=== PATIENT | female | born 1965 | race Caucasian/White ===

== ENCOUNTER 2020-12-18 11:16 | Emergency (ER) | payer OTHER ==
[~2020-12-18 11:16] MED LIST: CLIMARA TOP; CYMBALTA 30MG C30 MG PO; FLONASE ALLER15.8 ML; JENTADUETO 2.51 EAC1 PO; KLONOPIN0.5 MG PO; MULTI-VITAMIN1 EAC1 PO; NORCO 5-325 TA1 EACH PO; PRILOSEC20 MG PO; SYMBICORT 80-10.2 GM INH; TRADJENTA5 MG PO; VENLAFAXINE HCL75 MG PO; VENTOLIN HFA IN18 GM INH; VICTOZA 2-0.6 MG/0.1 SQ; VITAMIN D2000 UNIT PO; ZESTORETIC 20-1 EACH PO; [UNRECOGNIZED DRUG - OTHER] TOP
[2020-12-18 11:50] LABS: BASOPHIL 0.3 % (0-2); EOSINOPHIL 1.5 % (0-5); HCT 42.1 % (37.0-47.0); HGB 14.1 g/dl (12.5-16.0); LYMPHOCYTE 39.4 % (15-48); MCH 31.1 pg (25.0-31.0); MCHC 33.5 g/dL (32.0-36.0); MCV 92.7 fL (78.0-100.0); MONOCYTE 9.2 % (0-12); MPV 9.4 fL (6.0-9.5); NEUTROPHIL 49.4 % (41-80); NRBC 0; PLT 162 K/uL (150-400); RBC 4.54 M/uL (4.20-5.40); RDW 12.7 % (11.5-14.0); WBC 6.6 K/uL (4.0-10.5)
[2020-12-18 12:21] LABS: ALBUMIN 3.7 g/dL (3.4-5.0); BILIRUBIN - TOTAL 0.7 mg/dL (0.2-1.0); BUN/CREAT RATIO (CALC) 23.6 RATIO; CREATININE 0.72 mg/dL (0.51-0.95); GLOBULIN (CALCULATION) 3.4 g/dL; POTASSIUM 3.7 mmol/L (3.5-5.1); TOTAL PROTEIN 7.1 g/dL (6.4-8.2)
== END 2020-12-18 13:25 | disposition home or self-care (01) ==
LOC: FER 11:16
PROVIDERS: Emergency Medicine
DX: E11.649 Type 2 diabetes mellitus with hypoglycemia without coma (principal); I10 Essential (primary) hypertension; J44.9 Chronic obstructive pulmonary disease, unspecified; F17.210 Nicotine dependence, cigarettes, uncomplicated; Z88.2 Allergy status to sulfonamides
CPT/HCPCS: 36415; 80053; 84484; 85025; 93005; J7040

== ENCOUNTER 2020-12-28 11:18 | Emergency (ER) | payer OTHER ==
[2020-12-28] MEDS ORDERED: KEFLEX250 MG PO (14:25)
== END 2020-12-28 15:05 | disposition home or self-care (01) ==
LOC: FER 11:18
DX: S61.311A Laceration without foreign body of left index finger with damage to nail, initial encounter (principal); E11.9 Type 2 diabetes mellitus without complications; I10 Essential (primary) hypertension; Z23 Encounter for immunization; W26.8XXA Contact with other sharp object(s), not elsewhere classified, initial encounter; Y92.009 Unspecified place in unspecified non-institutional (private) residence as the place of occurrence of the external cause
CPT/HCPCS: 73140; 90471; 90715; 96372; J2250

== ENCOUNTER → 2022-02-20 | Day surgery (SDC) | payer OTHER ==
[~2022-02-20] VITALS: Ht 162.6 cm; Wt 106.6 kg
[~2022-02-20] MED LIST changes: +CALCIUM + VITA1 EACH PO; +CELECOXIB200 MG PO; +DAILY VALUE1 EACH PO; +DESYREL50 MG PO; +ELAVIL25 MG PO; +FLONASE ALLER15.8 ML INH; +HYDROCHLOROTH12.5 MG PO; +KEFLEX250 MG PO; +LISINOPRIL5 MG PO; +VICTOZA 3-0.6 MG/0.1 SC
== END | disposition home or self-care (01) ==
LOC: FAS 08:27
DX: Z12.11 Encounter for screening for malignant neoplasm of colon (principal); D12.3 Benign neoplasm of transverse colon; K64.8 Other hemorrhoids; K64.4 Residual hemorrhoidal skin tags; K21.9 Gastro-esophageal reflux disease without esophagitis; F17.210 Nicotine dependence, cigarettes, uncomplicated; Z86.010 Personal history of colon polyps; Z79.899 Other long term (current) drug therapy; Z88.2 Allergy status to sulfonamides; Z72.89 Other problems related to lifestyle
CPT/HCPCS: J2704; J7120